=== PATIENT | male | born 1960 | race Caucasian/White ===

== ENCOUNTER 2017-05-01 07:20 | Inpatient (IN) ==
[~2017-05-01 07:20] MED LIST: cefOXitin 2 GM VIAL IV SCH
[2017-05-01 08:26] LABS: Mean Cell Volume 91.4 fL (80.0-100.0); Mean Corpuscular HGB Conc 33.2 g/dL (31.0-36.0); Mean Corpuscular Hemoglobin 30.3 pg (26.0-34.0); Platelet Count 388 K/mcL (140-440); RBC 4.14 M/mcL (4.50-5.90); Red Cell Distribution Width 12.7 % (11.5-14.5)
[2017-05-01 08:43] LABS: ALT/SGPT 40 U/l (0-40); Albumin 3.9 gm/dL (3.2-5.2); Albumin/Globulin Ratio 1.1 (1.0-2.3); Alkaline Phosphatase 132 U/L (39-117); Bilirubin,Direct < 0.2 mg/dL (0.0-0.3); Blood Urea Nitrogen 24 mg/dl (6-20); Gamma Glutamyl Transpeptidase 114 U/L (8-61); Uric Acid 6.6 mg/dL (2.5-8.0)
[2017-05-01 08:58] LABS: Basophils % (Manual) 1 % (0-2); Eosinophils % (Manual) 6 % (0-7); Lymphocytes % 16 % (15-49); Monocytes % (Manual) 16 % (1-12); Platelet Estimate NORMAL (NORMAL); RBC Morphology NORMAL (NORMAL); Segmented Neutrophils % 61 % (38-78)
[2017-05-01] MEDS ORDERED: IPRATROPIUM/ALBUTEROL 3 ML AMPUL.NEB NEB ONE (09:02)
[2017-05-01] MEDS ORDERED: GLYCOPYRROLATE 0.2 MG/ML VIAL IV ONE (09:30)
[2017-05-01] MEDS ORDERED: ONDANSETRON 4 MG/2 ML VIAL IV ONE (09:30)
[2017-05-01] MEDS ORDERED: ROCURONIUM 10 MG/ML ML IV ONE (09:30)
[2017-05-01] MEDS ORDERED: KETAMINE 100 MG/ML ML IV ONE (09:30)
[2017-05-01] MEDS ORDERED: LIDOCAINE HCL/PF 100 MG/5 ML SYRINGE IV ONE (09:30)
[2017-05-01] MEDS ORDERED: MIDAZOLAM 2 MG/2 ML VIAL IV ONE (09:30)
[2017-05-01] MEDS ORDERED: NEOSTIGMINE 1 MG/ML VIAL IV ONE (09:30)
[2017-05-01] MEDS ORDERED: SUCCINYLCHOLINE 20 MG/ML ML IV ONE (09:30)
[2017-05-01] MEDS ORDERED: PROPOFOL 200 MG/20 ML VIAL IV ONE (09:30)
[2017-05-01] MEDS ORDERED: MEPERIDINE 25 MG/ML SYRINGE IV PRN (11:04)
[2017-05-01] MEDS ORDERED: IPRATROPIUM/ALBUTEROL 3 ML AMPUL.NEB NEB PRN (11:04)
[2017-05-01] MEDS ORDERED: NICOTINE 21 MG PATCH TOPICAL ONE (11:04)
[2017-05-01] MEDS ORDERED: diphenhydrAMINE 50 MG/ML VIAL IV PRN (11:04)
[2017-05-01] MEDS ORDERED: METOPROLOL TARTRATE 5 MG/5 ML VIAL IV PRN (11:04)
[2017-05-01] MEDS ORDERED: ONDANSETRON 4 MG/2 ML VIAL IV PRN ×3 (11:04→13:44)
[2017-05-01] MEDS ORDERED: PROMETHAZINE 25 MG/ML VIAL IV PRN (11:04)
[2017-05-01] MEDS ORDERED: METHOCARBAMOL 1,000 MG/10 ML VIAL IV PRN (11:04)
[2017-05-01] MEDS ORDERED: BENZOCAINE/MENTHOL 1 LOZENGE PO PRN (11:04)
[2017-05-01] MEDS ORDERED: TRANEXAMIC ACID 1,000 MG/10 ML VIAL IV ONE (11:10)
[2017-05-01] MEDS ORDERED: LACTATED RINGERS 1,000 ML IV SCH (11:15)
[2017-05-01] MEDS ORDERED: MAGNESIUM HYDROXIDE 30 ML ORAL.SUSP PO PRN ×2 (11:18→13:44)
[2017-05-01] MEDS ORDERED: LORazepam 2 MG/ML VIAL IV PRN ×2 (11:24→13:44)
[2017-05-01] MEDS ORDERED: DEXTROSE 5%-NS 1,000 ML IV SCH (11:30)
--- NOTE | 2017-05-01 11:32 | Brief Operative Note ---
Date of procedure: 05/01/17 Pre-op diagnosis: left renal pelvis cancer Post-op diagnosis: same Procedure: redical left nephroureterectomy Grafts/Implants: No Anesthesia: GETA, regional, spinal Findings: see note Complications: none Surgeon: Lamine Mccord Manager [employer] Sales: Johanne Adames Specimens Removed/Pathology: other (kidney, ureter) Condition: stable Disposition: PACU
[2017-05-01] MEDS: fentaNYL 100 MCG/2 ML VIAL IV PRN ×4 (11:47→12:12)
--- NOTE | 2017-05-01 11:59 | Operative Note ---
DATE OF OPERATION: 05/01/2017 PREOPERATIVE DIAGNOSIS: Left renal pelvis carcinoma. POSTOPERATIVE DIAGNOSIS: Left renal pelvis carcinoma. PROCEDURE: Left nephroureterectomy. SURGEON: Lamine Mccord MD GEAR [employer] SET UP OPERATOR: Johanne Adames MD INDICATION: The patient is a 57-year-old gentleman who has had gross blood in his urine. CT scan showed a mass in the left pelvis and ureteroscopy confirmed that this was transitional cell carcinoma. His bladder was clear. He presents now nephroureterectomy. PROCEDURE: The patient was identified and consent was signed. He was given general anesthesia, placed in supine position, and prepped and draped in a standard fashion. A Rdz catheter was placed and this drained clear urine. Subcostal incision was made and carried down through the fascia with electrocautery. The abdomen was then opened and we were able to mobilize the colon and were able to see Gerota's fascia. This was carefully dissected and we were able to see the blood vessels. At this point, we found the artery and tied this off. We doubly ligated and then clipped the proximal side. Also there were two veins present. We also clipped and tied these off. I was pleased with the overall appearance. We were able to carefully excise the kidney and the proximal ureter and carried this down to the pelvic inlet. We inspected for bleeding. There was none. At this point, there was minimal blood loss. We then turned our attention and did a Buchanan incision on the left side in the pelvis. We were then able to carry this down through the muscle layers and expose the true pelvis. The peritoneal reflection was then opened and we were able to find the ureter. This was carried down to the bladder. We did identify the artery and this was ligated and we were able to take the dissection down to the bladder. Two stitches of 2-0 Vicryl were placed on either side. The ureter was excised and the bladder was closed with the stitches. I was pleased with the overall appearance. We inspected for bleeding. There was none. The Buchanan incision was closed in layers and the abdominal incision was closed in layers. The wound was reapproximated using rabia. He was then awoken and taken to recovery room in stable condition. Needle and sponge counts were correct. Estimated blood loss was 70 mL. KAROLYN:jessie Job ID: [id number] Doc ID: [id number] Lamine Mccord MD
[2017-05-01 13:05] LABS: Mean Cell Volume 91.2 fL (80.0-100.0); Mean Corpuscular HGB Conc 33.8 g/dL (31.0-36.0); Mean Corpuscular Hemoglobin 30.8 pg (26.0-34.0); Platelet Count 335 K/mcL (140-440); RBC 3.59 M/mcL (4.50-5.90); Red Cell Distribution Width 12.8 % (11.5-14.5)
[2017-05-01 13:18] LABS: Blood Urea Nitrogen 24 mg/dl (6-20)
[2017-05-01] MEDS ORDERED: cefOXitin 2 GM VIAL IV SCH (13:44)
[2017-05-01] MEDS ORDERED: 0.9 % SODIUM CHLORIDE 10 ML SYRINGE IV SCH (14:00)
[2017-05-01] MEDS: 0.9 % SODIUM CHLORIDE 10 ML SYRINGE IV SCH ×2 (14:07→21:22)
[2017-05-01] MEDS: DEXTROSE 5%-NS 1,000 ML IV SCH ×2 (14:07→20:42)
[2017-05-02] MEDS: DEXTROSE 5%-NS 1,000 ML IV SCH ×5 (04:02→23:02)
[2017-05-02] MEDS: 0.9 % SODIUM CHLORIDE 10 ML SYRINGE IV SCH ×4 (05:10→21:33)
[2017-05-02 05:34] LABS: Mean Cell Volume 91.6 fL (80.0-100.0); Mean Corpuscular HGB Conc 34.1 g/dL (31.0-36.0); Mean Corpuscular Hemoglobin 31.2 pg (26.0-34.0); Platelet Count 338 K/mcL (140-440); RBC 3.49 M/mcL (4.50-5.90); Red Cell Distribution Width 12.8 % (11.5-14.5)
[2017-05-02 05:57] LABS: Blood Urea Nitrogen 18 mg/dl (6-20)
--- NOTE | 2017-05-02 07:42 | General Surgery Progress Note ---
Subjective Patient reports: pain is less Narrative: Note initiated : 05/02/17 at 7:40 am Service Date, if different from initiated Date: [] Patient: Donny Hoang 57 y/o M admitted on 05/01/17 for Left Radical Nephroureterectomy. Chief Complaint: [] POD #1 AF/VSS wound dressing intact. transfer to floor clear liquids ambulate Objective Temp Pulse Resp BP Pulse Ox 99.5 F H 82 12 136/82 89 L 05/02/17 06:30 05/02/17 04:00 05/02/17 06:30 05/02/17 06:30 05/02/17 06:30 - Additional Data Intake & Output - Last 24 hours: Intake & Output 04/30/17 05/01/17 05/02/17 05/03/17 05:59 05:59 05:59 05:59 Intake Total 4614 / 4614 998 / 998 Output Total 1600 / 1600 Balance 3014 / 3014 998 / 998 Weight 195 lb 194 lb - Labs 05/02/17 03:30 05/02/17 03:30 Diabetes panel 05/01/17 05/01/17 05/02/17 Range/Units 07:38 11:39 03:30 Sodium 135 137 134 (133-145) mmol/L Potassium 4.4 4.9 4.3 (3.3-5.1) mmol/L Chloride 96 98 97 (96-108) mmol/L Carbon Dioxide 24 26 24 (22-30) mmol/L BUN 24 H 24 H 18 (6-20) mg/dl Creatinine 1.3 H 1.4 H 1.7 H (0.7-1.2) mg/dl Glucose 104 128 H 117 H (70-105) mg/dL Calcium 9.8 8.9 8.5 L (8.6-10.4) mg/dl AST 21 (0-37) U/l ALT 40 (0-40) U/l Alkaline Phosphatase 132 H (39-117) U/L Total Protein 7.5 (5.9-8.4) gm/dL Albumin 3.9 (3.2-5.2) gm/dL Triglycerides 142 (<150) mg/dl Calcium panel 05/01/17 05/01/17 05/02/17 Range/Units 07:38 11:39 03:30 Calcium 9.8 8.9 8.5 L (8.6-10.4) mg/dl Phosphorus 4.2 (2.7-4.5) mg/dL Albumin 3.9 (3.2-5.2) gm/dL Pituitary panel 05/01/17 05/01/17 05/02/17 Range/Units 07:38 11:39 03:30 Sodium 135 137 134 (133-145) mmol/L Potassium 4.4 4.9 4.3 (3.3-5.1) mmol/L Chloride 96 98 97 (96-108) mmol/L Carbon Dioxide 24 26 24 (22-30) mmol/L BUN 24 H 24 H 18 (6-20) mg/dl Creatinine 1.3 H 1.4 H 1.7 H (0.7-1.2) mg/dl Glucose 104 128 H 117 H (70-105) mg/dL Calcium 9.8 8.9 8.5 L (8.6-10.4) mg/dl Adrenal panel 05/01/17 05/01/17 05/02/17 Range/Units 07:38 11:39 03:30 Sodium 135 137 134 (133-145) mmol/L Potassium 4.4 4.9 4.3 (3.3-5.1) mmol/L Chloride 96 98 97 (96-108) mmol/L Carbon Dioxide 24 26 24 (22-30) mmol/L BUN 24 H 24 H 18 (6-20) mg/dl Creatinine 1.3 H 1.4 H 1.7 H (0.7-1.2) mg/dl Glucose 104 128 H 117 H (70-105) mg/dL Calcium 9.8 8.9 8.5 L (8.6-10.4) mg/dl Total Bilirubin 0.4 (0.0-1.0) mg/dL AST 21 (0-37) U/l ALT 40 (0-40) U/l Alkaline Phosphatase 132 H (39-117) U/L Total Protein 7.5 (5.9-8.4) gm/dL Albumin 3.9 (3.2-5.2) gm/dL Assessment and Plan - Time Spent With Patient Total time spent is greater than 50% in coordination of care (as documented) at patient's floor/unit and/or counseling patient:
[2017-05-02] MEDS ORDERED: LORazepam 2 MG/ML VIAL IV PRN (10:13)
[2017-05-02] MEDS: MAGNESIUM HYDROXIDE 30 ML ORAL.SUSP PO PRN (16:52)
[2017-05-02] MEDS ORDERED: ACETAMINOPHEN 500 MG TABLET PO PRN (21:20)
[2017-05-02] MEDS ORDERED: ACETAMINOPHEN 500 MG TABLET PO ONE (21:34)
[2017-05-03] MEDS: 0.9 % SODIUM CHLORIDE 10 ML SYRINGE IV SCH ×3 (05:58→21:41)
[2017-05-03 06:02] LABS: Basophils # (Auto) 0 K/mcL (0.0-0.3); Basophils % (Auto) 0.3 % (0.0-2.0); Eosinophils # (Auto) 0.2 K/mcL (0.0-0.7); Eosinophils % (Auto) 1.3 % (0.0-7.0); Granulocytes % (Auto) 82.2 % (38.0-78.0); Lymphocytes % (Auto) 5.9 % (15.5-49.0); Mean Cell Volume 91.7 fL (80.0-100.0); Mean Corpuscular HGB Conc 33.5 g/dL (31.0-36.0); Mean Corpuscular Hemoglobin 30.7 pg (26.0-34.0); Monocytes # (Auto) 1.8 K/mcL (0.1-0.9); Monocytes % (Auto) 10.3 % (1.0-12.0); Platelet Count 422 K/mcL (140-440); RBC 3.67 M/mcL (4.50-5.90); Red Cell Distribution Width 12.4 % (11.5-14.5)
[2017-05-03] MEDS: DEXTROSE 5%-NS 1,000 ML IV SCH ×2 (07:15→17:35)
[2017-05-03] MEDS: MAGNESIUM HYDROXIDE 30 ML ORAL.SUSP PO PRN (07:16)
[2017-05-03] MEDS ORDERED: morphine 15 MG TABLET PO PRN ×2 (09:45→15:11)
--- NOTE | 2017-05-03 09:51 | General Surgery Progress Note ---
Subjective Patient reports: feels better, tolerating liquids well, fever Narrative: Note initiated : 05/03/17 at 9:49 am Service Date, if different from initiated Date: [] Patient: Donny Hoang 57 y/o M admitted on 05/01/17 for Left Radical Nephroureterectomy. Chief Complaint: [] pod #2 febrile last night. responded to pulmonary toilet and tylenol. will observe d/c arguello keep on clear liquids ambulate dressing removed. wound looks good. Objective Temp Pulse Resp BP Pulse Ox 98.8 F 80 16 140/89 95 05/03/17 06:57 05/03/17 06:57 05/03/17 06:57 05/03/17 05:00 05/03/17 06:57 - Additional Data Intake & Output - Last 24 hours: Intake & Output 05/01/17 05/02/17 05/03/17 05/04/17 05:59 05:59 05:59 05:59 Intake Total 4614 / 4614 3568 / 3568 822 / 822 Output Total 1600 / 1600 1625 / 1625 Balance 3014 / 3014 1943 / 1943 822 / 822 Weight 195 lb 194 lb 194 lb - Labs 05/03/17 05:20 05/02/17 03:30 Assessment and Plan - Time Spent With Patient Total time spent is greater than 50% in coordination of care (as documented) at patient's floor/unit and/or counseling patient:
[2017-05-03] MEDS: ONDANSETRON 4 MG/2 ML VIAL IV PRN (17:34)
[2017-05-03] MEDS ORDERED: BISACODYL 10 MG SUPP.RECT PR ONE (20:31)
[2017-05-04] MEDS: DEXTROSE 5%-NS 1,000 ML IV SCH ×3 (03:54→23:00)
[2017-05-04 05:33] LABS: Mean Cell Volume 91.6 fL (80.0-100.0); Mean Corpuscular HGB Conc 33.5 g/dL (31.0-36.0); Mean Corpuscular Hemoglobin 30.7 pg (26.0-34.0); Platelet Count 408 K/mcL (140-440); RBC 3.24 M/mcL (4.50-5.90); Red Cell Distribution Width 12.6 % (11.5-14.5)
[2017-05-04] MEDS: 0.9 % SODIUM CHLORIDE 10 ML SYRINGE IV SCH ×3 (06:04→20:20)
[2017-05-04 06:45] LABS: Band Neutrophils % 2 % (0-10); Eosinophils % (Manual) 1 % (0-7); Lymphocytes % 8 % (15-49); Monocytes % (Manual) 9 % (1-12); Platelet Estimate NORMAL (NORMAL); RBC Morphology NORMAL (NORMAL); Segmented Neutrophils % 80 % (38-78)
[2017-05-04] MEDS: MAGNESIUM HYDROXIDE 30 ML ORAL.SUSP PO PRN (07:36)
[2017-05-04] MEDS ORDERED: CALCIUM CARBONATE 500 MG TAB.CHEW CHEWED PRN (09:23)
--- NOTE | 2017-05-04 09:32 | General Surgery Progress Note ---
Subjective Patient reports: feels better, voiding w/o difficulty, flatus, bowel movement, nausea Narrative: Note initiated : 05/04/17 at 9:29 am Service Date, if different from initiated Date: [] Patient: Donny Hoang 57 y/o M admitted on 05/01/17 for Left Radical Nephroureterectomy. Chief Complaint: [] pod #3 positive bm. 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, see if dilaudid works better for him Objective Temp Pulse Resp BP Pulse Ox 98.4 F 85 16 154/88 93 05/04/17 07:00 05/04/17 07:00 05/04/17 07:00 05/04/17 07:00 05/04/17 07:00 - Additional Data Intake & Output - Last 24 hours: Intake & Output 05/02/17 05/03/17 05/04/17 05/05/17 05:59 05:59 05:59 05:59 Intake Total 4614 / 4614 3568 / 3568 4622 / 4622 Output Total 1600 / 1600 1625 / 1625 1250 / 1250 Balance 3014 / 3014 1943 / 1943 3372 / 3372 Weight 194 lb 194 lb 201 lb - Labs 05/04/17 04:40 05/02/17 03:30 Assessment and Plan - Time Spent With Patient Total time spent is greater than 50% in coordination of care (as documented) at patient's floor/unit and/or counseling patient:
[2017-05-04] MEDS: ONDANSETRON 4 MG/2 ML VIAL IV PRN (13:12)
[2017-05-04] MEDS: HYDROmorphone 2 MG TABLET PO PRN ×2 (13:16→20:17)
[2017-05-04] MEDS: DOCUSATE SODIUM 100 MG CAPSULE PO SCH (20:17)
[2017-05-04] MEDS: FAMOTIDINE 20 MG TABLET PO SCH (20:18)
[2017-05-05] MEDS: HYDROmorphone 2 MG TABLET PO PRN ×4 (01:48→14:49)
[2017-05-05] MEDS: 0.9 % SODIUM CHLORIDE 10 ML SYRINGE IV SCH ×2 (06:24→14:49)
[2017-05-05] MEDS: DOCUSATE SODIUM 100 MG CAPSULE PO SCH (08:11)
[2017-05-05] MEDS: FAMOTIDINE 20 MG TABLET PO SCH (10:03)
[2017-05-05] MEDS: DEXTROSE 5%-NS 1,000 ML IV SCH (10:24)
--- NOTE | 2017-05-05 15:28 | Surgical Pathology Report ---
HISTOLOGY SPECIMEN MICROSCOPIC DIAGNOSIS KIDNEY AND URETER, LEFT, RADICAL NEPHROURETERECTOMY: -- KIDNEY: - HIGH GRADE PAPILLARY UROTHELIAL CARCINOMA, FOCALLY INVASIVE, WITH THE FOLLOWING FEATURES (SEE COMMENT): - TUMOR SITE: RENAL PELVIS, SUPERIOR POLE. - TUMOR FOCALITY: UNIFOCAL. - TUMOR SIZE: 5.5 cm IN GREATEST DIMENSION. - MICROSCOPIC TUMOR EXTENSION: TUMOR FOCALLY INVADES THE LAMINA PROPRIA. - LYMPH-VASCULAR INVASION: NOT IDENTIFIED. - MARGINS: - URETER AND PERINEPHRIC SOFT TISSUE MARGINS UNINVOLVED BY INVASIVE AND NON-INVASIVE CARCINOMA. - PATHOLOGIC STAGE: pT1 Nx. - SEE SUMMARY OF CANCER DATA FOR DETAILS. - BACKGROUND RENAL PARENCHYMA WITH MILD, PATCHY CHRONIC INFLAMMATION. -- URETER: - ACUTE AND CHRONIC URETERITIS. - NO IN SITU OR INVASIVE UROTHELIAL CARCINOMA IDENTIFIED. (DMT:miri) COMMENT: The kidney contains a high grade papillary urothelial carcinoma which involves predominantly the superior renal pelvis with extension into the major calices of the upper pole. The carcinoma is predominantly luminal in location with only a minute focus of superficial invasion into the lamina propria of one major calyx. The focus of invasion spans a length of 0.75 mm. Both non-invasive and invasive carcinoma are widely clear of the perinephric soft tissue and ureter margins. SUMMARY CANCER DATA Procedure: Nephroureterectomy, complete. Specimen Laterality: Left. Tumor Site: Renal pelvis, superior pole. Tumor Focality: Unifocal Tumor Size: 5.5 cm in greatest dimension. Histologic Type: Papillary urothelial carcinoma, focally invasive. Histologic (Monie) Grade: High grade. Macroscopic Extent of Tumor: Tumor focally invades into the lamina propria. Lymph-Vascular Invasion: Not identified. Margins: Ureter and perinephric soft tissue margins uninvolved by invasive and non-invasive carcinoma. Lymph Nodes: None present. Pathologic Stage: pT1 Nx. PROCEDURAL IMPRESSION Left renal pelvis neoplasm. GROSS DESCRIPTION Received in formalin labeled left kidney, is a nephroureterectomy specimen consisting of an intact left kidney with an attached ureter and a minimal amount of attached adipose tissue. The kidney by weighs 189 grams and is 12.5 x 6.8 x 5.2 cm. The external surface is lobulated, smooth, glistening and unremarkable. The perinephric capsule appears intact. The renal vein and several blood vessels are ligated at the renal hilum. The attached segment of ureter is 21.0 cm long and varies from 0.7 to 1.0 cm in diameter with the thicker portion at the end distal to the kidney. The end of the ureter distal to the kidney has pale douglas fibrous appearing tissue surrounding the lumen. The lumen at this end is 0.1 cm in diameter. No adrenal gland is attached to the superior pole. The external surface of the kidney and ureter are inked black. The specimen is bivalved and reveals a douglas-white, papillary appearing mass occupying almost the entire superior half of the specimen. The mass is 5.5 x 4.3 x 4.0 cm. The mass appears centered within the superior aspect of the renal pelvis with extension into the adjacent major calices. No definite gross extension into the renal parenchyma or hilar adipose tissue is seen. The mass is friable and easily separates from the inner wall of the calices. No extension into the adjacent ureter is identified. The renal parenchyma adjacent to the mass is compressed to a thickness of 0.5 cm. The renal parenchyma of the inferior half has normal appearing cortex and medulla. The cortex is up to 1.3 cm thick in the inferior pole. No additional masses are identified. The renal hilar adipose tissue is examined and no hilar lymph nodes are identified. The ureter is opened along its length and the mucosa appears douglas-pink smooth and glistening. No ureteral lesions are identified. [employer] Press Operator sections are submitted as follows: A1 - ureter margin; A2-A3 - cross sections in the distal end of the ureter; A4 - ligated blood vessels and portion of ureter adjacent to renal pelvis; A5-A7 - sections of cortex and medulla with attached mass; A8-A12 - mass and calices; A13-A14 - renal pelvis adipose tissue; A15 - additional section of mass within renal pelvis; A16-A17 - uninvolved portion of kidney. (RAD:sln) Electronically Signed by: Ariel Israel M.D.
--- NOTE | 2017-05-05 16:44 | Discharge Plan ---
Discharge Plan - Patient/Caregiver Discharge Instructions Activity: increase activity as tolerated Diet: Regular Diet Additional Instructions: no heavy lifting (>10 lbs) Follow up 05/12/17 for staple removal Prescriptions: HYDROmorphone HCL [Dilaudid] 2 mg PO Q4-6HP PRN #30 tab PRN Reason: Pain - Follow up Plan Follow up with: Lamine Mccord MD [Physician] - 05/16/17 9:15 am Disposition: Home, Self-Care Prognosis: Good Rehab Potential: Good I certify that the patient requires SNF services.: No Overall status at discharge: patient is back to baseline
--- NOTE | 2017-05-05 16:59 | General Surgery Progress Note ---
Subjective Patient reports: feels better Narrative: Note initiated : 05/05/17 at 4:58 pm Service Date, if different from initiated Date: [] Patient: Donny Hoang 57 y/o M admitted on 05/01/17 for Left Radical Nephroureterectomy. Chief Complaint: [] dilaudid controls pain will d/c to home f/u for staple removal next week Objective Temp Pulse Resp BP Pulse Ox 96.7 F L 78 16 149/81 97 05/05/17 16:00 05/05/17 07:38 05/05/17 11:23 05/05/17 16:00 05/05/17 16:00 - Additional Data Intake & Output - Last 24 hours: Intake & Output 05/03/17 05/04/17 05/05/17 05/06/17 05:59 05:59 05:59 05:59 Intake Total 3568 / 3568 4622 / 4622 2377 / 2377 Output Total 1625 / 1625 1250 / 1250 2900 / 2900 Balance 1943 / 1943 3372 / 3372 -523 / -523 Weight 194 lb 201 lb 194 lb 8 oz - Labs 05/04/17 04:40 05/02/17 03:30 Assessment and Plan - Time Spent With Patient Total time spent is greater than 50% in coordination of care (as documented) at patient's floor/unit and/or counseling patient:
--- NOTE | 2017-05-06 07:36 | Discharge Summary ---
DATE OF ADMISSION: 05/01/2017 DATE OF DISCHARGE: 05/05/2017 PREOPERATIVE DIAGNOSIS: Transitional cell carcinoma of the left renal pelvis. POSTOPERATIVE DIAGNOSIS: Transitional cell carcinoma of the left renal pelvis. PROCEDURE PERFORMED: Left radical nephroureterectomy. SURGEON: Lamine Mccord MD FINAL PATHOLOGY: Shows high-grade papillary focally invasive transitional cell carcinoma. Tumor size was 5.5 grams, no carcinoma in situ noted. Pathological stage PNX. HISTORY OF PRESENT ILLNESS: The patient is a 57-year-old gentleman who had gross hematuria. Ureteroscopy confirmed that there was a tumor in the left upper pole of his kidney and he presents now for a nephroureterectomy. Please see that dictation. BRIEF HOSPITAL COURSE: The patient was observed in telemetry overnight and did well. He had minimal blood loss and his hematocrit was stable. Postoperatively, he did have increased white cell, but this came down. By day 3, he had cleared his ileus, was passing gas and was started on a regular diet. His pain was controlled with Dilaudid and he is ready for discharge to home. Discharge medications include Dilaudid 2 mg 1 to 2 tabs p.o. q.4-6h. p.r.n. for pain. We will remove his rabia next week in the office. There were no transfusions. KAROLYN:jessie Job ID: [id number] Doc ID: [id number] Lamine Mccord MD
== END 2017-05-05 18:05 | disposition home or self-care (01) | DRG 658 ==
LOC: ICU 07:29 → MEDSUR 05-02 18:23